=== PATIENT | female | born 1985 | race African-American/Black ===

== ENCOUNTER 2016-08-31 21:15 | Emergency (ER) | payer OTHER ==
[2016-08-31 20:22] LABS: INFLUENZA A NEG (NEG); INFLUENZA B POS (NEG)
[~2016-08-31 21:15] MED LIST: NAPROSYN500 MG PO
== END 2016-08-31 21:35 | disposition home or self-care (01) ==
LOC: CFTX 21:15
PROVIDERS: Physician Assistant
DX: J10.1 Influenza due to other identified influenza virus with other respiratory manifestations (principal)
CPT/HCPCS: 87651; 87804; 99283